=== PATIENT | female | born 1980 | race African-American/Black ===

== ENCOUNTER 2020-06-03 17:14 | Emergency (ER) | payer OTHER, MEDICAID, SELFPAY ==
--- NOTE | ~2020-06-03 | XR_ITS ---
XR chest 1V 06/03/2020 17:59 Indication: Chest pain Procedure: AP view of the chest Comparison: No prior studies for comparison. Findings: There is subsegmental atelectasis left lower lung zone. Heart size normal. No focal pneumon ia, edema, pleural effusion or pneumothorax. No acute osseous abnormality. Impression: 1: Subsegmental atelectasis left lower lung zone. Reviewed, dictated and finalized at location A. COATER Impression: 1: Subsegmental atelectasis left lower lung zone.
--- NOTE | ~2020-06-03 | US_ITS ---
EXAMINATION: US venous doppler [facility] DATE: 06/03/2020 17:57 INDICATION: Left arm pain TECHNIQUE: Paulino scale images with and without compression and Doppler images of the left upper extrem ity veins were obtained. COMPARISON: None. FINDINGS: The left internal jugular vein, subclavian vein, axillary vein, brachial veins, basilic vein, cephali c vein, radial vein, and ulnar vein are patent.] IMPRESSION: 1. Patent left upper extremity veins. No evidence of deep venous thrombosis. Reviewed, dictated and finalized at location A. AL TECHNICIAN
[2020-06-03 17:16] VITALS: BP 148/101; PULSE 112; RESP 16; TEMP 36.2; O2SAT 100
--- NOTE | 2020-06-03 18:03 | ED.GENADULT ---
HPI - General Adult General Chief complaint: Extremity Injury, Upper Stated complaint: Right Arm Stiffness Time Seen by Provider: 06/03/20 17:23 Source: patient Mode of arrival: ambulatory Limitations: no limitations History of Present Illness HPI narrative: Patient is a 39-year-old female who presents with left upper arm stiffness and aching pain for the last 2 days was seen by primary care referred to the emergency department for evaluation of this patient has not had a thick repaired she denies injury or trauma pain is worse with activity and movement Review of Systems Review of Systems: All systems reviewed & are unremarkable except as noted in HPI and below PMFSH Past Medical History Medical History Breast cancer Hyperlipidemia Social History Social History (Updated 06/03/20 @ 18:05 by Chencho Kincaid PA-C) Smoking status: Never smoker Exam Narrative: Exam Narrative: GENERAL: Well-appearing, well-nourished, and in no acute distress. HEAD: Normocephalic, atraumatic. EYES: PERRLA and EOMI. ENT: Nares clear, no rhinorrhea or epistaxis. Mucous membranes moist. NECK: Supple. No adenopathy or masses. CHEST: Clear to auscultation. No respiratory distress. No wheezes rales or rhonchi HEART: Regular rate and rhythm. No murmur heard. Normal peripheral pulses. EXTREMITIES: Normal range of motion. No edema. Spasming and tenderness of the trapezius musculature rotator cuff musculature no cervical spine tenderness SKIN: Warm, dry, no rash. NEURO: No focal deficits. Alert and oriented x3. Neurovascularly intact. Capillary refill less than 2 seconds PSYCH: Normal mood and affect. Course Course Emergency Course: Patient in the room at this time aware of case findings treatment plan diagnosis will be discharged with outpatient follow-up with primary care Vital Signs Vital signs: Vital Signs Temperature 97.2 F L 06/03/20 17:16 Pulse Rate 112 H 06/03/20 17:16 Respiratory Rate 16 06/03/20 17:16 Blood Pressure 148/101 H 06/03/20 17:16 Pulse Oximetry 100 06/03/20 17:16 Temperature 97.2 F L 06/03/20 17:16 Pulse Rate 112 H 06/03/20 17:16 Respiratory Rate 16 06/03/20 17:16 Blood Pressure 148/101 H 06/03/20 17:16 Pulse Oximetry 100 06/03/20 17:16 Medical Decision Making MDM Narrative Medical decision making narrative: Patients injury or pain is consistent with musculoskeletal etiology. No signs of neurological or vascular compromise on exam. Compartments and tisues are soft without signs of compartment syndrome. Pain is felt appropriate for further evaluation on an outpatient basis. Vital Signs Vital Signs: Vital Signs Temperature 97.2 F L 06/03/20 17:16 Pulse Rate 112 H 06/03/20 17:16 Respiratory Rate 16 06/03/20 17:16 Blood Pressure 148/101 H 06/03/20 17:16 Pulse Oximetry 100 06/03/20 17:16 Temperature 97.2 F L 06/03/20 17:16 Pulse Rate 112 H 06/03/20 17:16 Respiratory Rate 16 06/03/20 17:16 Blood Pressure 148/101 H 06/03/20 17:16 Pulse Oximetry 100 06/03/20 17:16 Imaging Data Radiologist's impression: ITS Impressions Venous Doppler Study 06/03/20 18:00 IMPRESSION: 1. Patent left upper extremity veins. No evidence of deep venous thrombosis. Chest X-Ray 06/03/20 18:01 Impression: 1: Subsegmental atelectasis left lower lung zone. Discharge Plan Discharge Clinical Impression: Arm pain, left Patient Disposition: Home, Self-Care Condition: Stable Instructions: Antibiotic Form, Arm Pain (ED) Additional Instructions: Follow up with your primary care provider within 5-7 days. Go to ER for shortness of breath, difficulty breathing, chest pain, fever/chills, weakness, nauseau/vomitting, etc. or any other concerns. Take any prescribed medications as directed. If you do not have a drug allergy to tylenol or motrin and can tolerate it then take tylenol or
[2020-06-03] MEDS: KETOROLAC (*BKC) 60 MG/2 ML VIAL IM (18:24)
[2020-06-03 18:44] VITALS: BP 136/70; PULSE 100; RESP 12; O2SAT 99
== END 2020-06-03 18:44 | disposition home or self-care (01) ==
LOC: ANHED 18:35
PROVIDERS: Emergency Provider Emergency Medicine; PCP Emergency Medicine
DX: M79.622 Pain in left upper arm (principal); Z85.3 Personal history of malignant neoplasm of breast; E78.5 Hyperlipidemia, unspecified; R91.8 Other nonspecific abnormal finding of lung field
CPT/HCPCS: 71045; 93971; 96372; 99284; J1885

== ENCOUNTER 2023-01-12 15:06 | Outpatient (CLI) | payer OTHER, SELFPAY ==
--- NOTE | ~2023-01-12 | US_ITS ---
EXAMINATION: US pelvic complete w TV DATE: 01/12/2023 16:08 INDICATION: Pelvic and perineal pain. TECHNIQUE: Multiple transabdominal and transvaginal sonographic images of the pelvis were obtained. COMPARISON: None. FINDINGS: TRANSABDOMINAL ULTRASOUND: The uterus measures 10.4 x 15.3 x 9.7 cm. There is no free fluid in the pelvis. TRANSVAGINAL ULTRASOUND: The endometrial complex is not visualized. There are 4 subserosal fibroids in uterus measuring 7.7 cm , 4.8 cm, 4.6 cm, and 3.8 cm, respectively. The right ovary measures 2.9 x 1.8 x 3.0 cm. The left ova ry measures 3.7 x 2.1 x 2.7 cm. There is normal vascular flow in the ovaries. IMPRESSION: 1. Uterine fibroids. Reviewed, dictated and finalized at location A. IMPRESSION: 1. Uterine fibroids.
== END 2023-01-12 15:07 | disposition home or self-care (01) ==
PROVIDERS: PCP Emergency Medicine; Visit Provider Obstetrics & Gynecology
DX: R10.2 Pelvic and perineal pain (principal); D25.9 Leiomyoma of uterus, unspecified
CPT/HCPCS: 76830; 76856

== ENCOUNTER 2023-02-18 07:54 | Outpatient (CLI) | payer OTHER, SELFPAY | END 2023-02-18 07:55 | disposition home or self-care (01) | LOC: ANHSURGERY 07:59 | PROVIDERS: PCP Emergency Medicine; Visit Provider Obstetrics & Gynecology | DX: D21.9 Benign neoplasm of connective and other soft tissue, unspecified (principal) | CPT/HCPCS: 36415; 86850; 86900; 86901 ==

== ENCOUNTER 2023-02-25 12:33 | Inpatient (IN) | payer OTHER, SELFPAY ==
[2023-02-12 17:04] VITALS: BMI 34.9
--- NOTE | 2023-02-12 17:13 | PC.NURSE ---
Report to the Outpatient Waiting Room, entrance under the green pavilion located off [facility], at time _0600_ on date _[id number]_. Planned Procedure Time: _0730_. Time changes happen often and if your time is changed the preop area will call you the afternoon before. - You and your visitor will be asked to self-screen and do not enter if you have any COVID symptoms. - A mask is optional within the hospital at this time. Patients may have clear liquids (water, carbonated beverages, clear teas, apple juice) until 3 hours prior to surgery with a maximum of 20 ounces. - No food from midnight until time of surgery Take the following medications with a SIP of water the morning of surgery: ___Tamoxifen DO NOT STOP ANY OF YOUR OTHER PRESCRIPTION MEDICATIONS PRIOR TO SURGERY ?EXCEPT THE FOLLOWING Medications to discontinue per physician ____None Date to take last dose Please no make-up, nail citizen of [place], hairspray, perfume, deodorant, or body powder the day of surgery. No jewelry (including any body piercings) or valuables the day of surgery, leave them at home. Please take a shower or bath the night before, or the morning of, surgery with an antibacterial soap. Wear comfortable, loose fitting clothing. - Jewelry must be removed prior to entering the operating room. Rings and piercings that are not removed may be cut off. - The hospital will not accept responsibility for valuables. - Please leave all valuables, including medications, at home the day of surgery. If you are going home after surgery, a licensed delivery driver must drive you home. - NO public transportation without another adult if you receive anesthesia. - We recommend that an adult stay with you for 24 hours following discharge. - We also recommend that you do not drive, make important decision, drink alcoholic beverages, or take any drugs that were not prescribed by your health care provider for at least 24 hours after your discharge time. Follow any additional instructions given to you from your surgeon. If you or anyone in your household have experienced Covid symptoms in the past week, please notify your surgeon or the nurse liaison at the phone number below for possible testing. Telephone instructions given to _Manuela__and asked if any additional questions and then verbalized understanding. Patient advised to call surgeon office or pre surgery nurse liaison [phone] if any additional questions.
--- NOTE | 2023-02-24 14:17 | WPDANESEPPF ---
Anes - Initial Pre Proc Eval Procedure: Operation Date: 02/25/23 07:30 Proposed Procedures p Total Abdominal Hysterectomy with Bilateral Salpingectomy - Aruna Archuleta MD s Open Ventral Hernia Repair with Possible Mesh - Nilton Tay MD Date/Time: 02/24/23 14:17 Surgeon: Aruna Archuleta MD Pre Op Diagnosis: uterine fibroids, Ventral Hernia Patient Data Age: 42 Gender: F Height: 1.5 m Weight: 78.6 kg Allergies Allergy/AdvReac Type Severity Reaction Status Date / Time No Known Allergies Allergy Verified 02/12/23 17:03 Home Medications Medication Instructions Recorded Confirmed Type tamoxifen 20 mg tablet 20 mg PO DAILY 01/12/23 02/12/23 History ibuprofen 800 mg tablet 800 mg PO TID PRN Pain 02/12/23 02/12/23 History Patient hx anesthesia problems: none Family hx anesthesia problems: none Results Review: All pre-operative results and documents have been reviewed as part of the pre-operative evaluation. [facility] Past Medical History Medical History (Updated 02/24/23 @ 21:06 by Aruna Archuleta MD) Breast cancer Hyperlipidemia Surgical History Surgical History Delivery by section H/O laparoscopy History of tubal ligation Family History Family History Other COPD (chronic obstructive pulmonary disease) Hypertension Social History Social History (Updated 01/28/23 @ 14:11 by Maria R Joyce MA) Years smoked: 2 Smoking status: Current every day smoker Tobacco type: cigarettes Additional smoking assessment comments: smokes weekends only. Alcohol intake: current Drinks per week: 7 Alcohol use details: socially Substance use: current Substance use type: marijuana Other substance usage details: daily Lack of Transportation: No Lack of Food: Never True Current Housing: I Have Housing Concerned About Future Housing: No Difficulty Paying Gas/Electric Bills: No Difficulty Paying for Meds: No Currently Unemployed: No Education: High School Diploma/GED Difficulty w/ Childcare or Family Care: No Living arrangements: with family Occupation/Education: occupation Gender identity (if verbalized by the patient): Female Sexual Orientation (if Verbalized by the Patient): Straight or Heterosexual Spiritual care concerns: No Anes - Eval Final PreProcedure Day of Procedure 02/24/23 14:17 Patient weight: obese Heart: regular rate and rhythm Lungs: clear to auscultation Airway: Mallampati scale class II Neurological: alert and oriented Last oral intake: >/= 8 hours ASA classification: III Emergent: no Anesthetic plan: proceed Anesthesia type and monitoring: general ETT and standard monitoring Results Review: All pre-operative results and documents have been reviewed as part of the pre-operative evaluation. Informed Consent: The patient's anesthetic plan and its attendant risks and benefits were discussed with the patient/family/POA. Questions were solicited and answers provided to the satisfaction of the patient/family/POA.
--- NOTE | 2023-02-24 21:01 | PM.IMHP ---
H&P: HPI History of Present Illness Date/Time: 02/24/23 21:01 Chief Complaint: pelvic pain Narrative: Manuela is a 42yo P2002, who presents for scheduled surgery. She went to [place] ER with abdominal pain. CT scan showed an enlarged fibroid uterus with possible necrosis.?She has a h/o tubal/ablation 15 yrs ago. She still has a monthly cycle, it's just very light. She has severe pelvic pain. She does have a h/o breast cancer in 2017 and is on Tamoxifen; reports it was hormonal positive. 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 She denies fever, chills. She would like to proceed with hysterectomy. 10/2021 NILM/HPV neg pap She has also seen Dr. Tay w/ general surgery due to her hernia/diastasis. Review of Systems Constitutional: Constitutional: Denies chills, Denies fever(s) and Denies headache(s) Eyes: Eyes: Denies change in vision ENT: Denies dizziness and Denies headache(s) Cardiovascular: Cardiovascular: Denies chest pain and Denies dyspnea Respiratory: Respiratory: Denies cough and Denies dyspnea Gastrointestinal: Gastrointestinal: Denies abdominal pain and Denies change in stool character Genitourinary: Genitourinary: Denies abnormal menses, Denies pelvic pain, Denies vaginal discharge, Denies vaginal odor and Denies vaginal pruritus Neurologic: Denies dizziness and Denies headache(s) Psychiatric: Psychiatric: Denies anxiety and Denies depression [facility] Past Medical History Medical History (Updated 02/24/23 @ 21:06 by Aruna Archuleta MD) Breast cancer Hyperlipidemia Surgical History Surgical History Delivery by section H/O laparoscopy History of tubal ligation Family History Family History Other COPD (chronic obstructive pulmonary disease) Hypertension Social History Social History (Updated 01/28/23 @ 14:11 by Maria R Joyce MA) Years smoked: 2 Smoking status: Current every day smoker Tobacco type: cigarettes Additional smoking assessment comments: smokes weekends only. Alcohol intake: current Drinks per week: 7 Alcohol use details: socially Substance use: current Substance use type: marijuana Other substance usage details: daily Lack of Transportation: No Lack of Food: Never True Current Housing: I Have Housing Concerned About Future Housing: No Difficulty Paying Gas/Electric Bills: No Difficulty Paying for Meds: No Currently Unemployed: No Education: High School Diploma/GED Difficulty w/ Childcare or Family Care: No Living arrangements: with family Occupation/Education: occupation Gender identity (if verbalized by the patient): Female Sexual Orientation (if Verbalized by the Patient): Straight or Heterosexual Spiritual care concerns: No Meds Home Medications and Allergies Home Medications Medication Instructions Recorded Confirmed Type tamoxifen 20 mg tablet 20 mg PO DAILY 01/12/23 02/12/23 History ibuprofen 800 mg tablet 800 mg PO TID PRN Pain 02/12/23 02/12/23 History Allergies Allergy/AdvReac Type Severity Reaction Status Date / Time No Known Allergies Allergy Verified 02/12/23 17:03 Exam Const: General: cooperative, comfortable, no acute distress and obese Orientation/consciousness: patient oriented x3 Resp: Effort & Inspection: normal respiratory effort Cardio: Rate: regular rate GI: Inspection: normal to inspection GI Palp: No abdominal tenderness and Yes Soft to palpation : Other: deferred to OR Skin: General skin exam: normal color Neuro: General: patient oriented x3 Extrem: General: normal to inspection Psych: Appearance: grossly normal Affect: normal affect Attitude: cooperative Assessment and Plan Assessment and plan (1) Fibroid uterus: Qualifiers: Uterine le
[2023-02-25] VITALS (17 sets, daily range): BP systolic 122–191; BP diastolic 86–116; PULSE 86–97; RESP 10–18; TEMP 36.2–36.9; O2SAT 94–100
[2023-02-25] MEDS: ACETAMINOPHEN 500 MG TABLET 1000 MG PO ×3 (07:00→21:12)
[2023-02-25] MEDS: LACTATED RINGERS 1,000 ML 30 ML IV CONT ×2 (07:00→10:45)
[2023-02-25] MEDS: KETOROLAC 15 MG/ML VIAL (*BKC) IV PUSH (07:00)
--- NOTE | 2023-02-25 07:18 | WPDHPUPDATE1 ---
History and Physical Update Update Date/Time: 02/25/23 07:18 History and Physical has been reviewed, including an updated exam of the patient. There are NO changes in the patient's condition. Risks, benefits, and alternatives have been discussed and questions answered. Patient agrees to proceed with procedure. Pt to get open hysterectomy today by Dr. Archuleta. Plan will be to make midline incision and when AIR SAMPLING AND MONITORING procedure is done, I will close the midline incision to perform primary repair of small ventral hernia and associated rectus diastasis.
--- NOTE | 2023-02-25 07:21 | WPDHPUPDATE1 ---
History and Physical Update Update Date/Time: 02/25/23 07:21 History and Physical has been reviewed, including an updated exam of the patient. There are NO changes in the patient's condition. Risks, benefits, and alternatives have been discussed and questions answered. Patient agrees to proceed with TAZ-BSO.
[2023-02-25] MEDS: ceFAZolin 2 GM/D5W 50 ML 2 GM/50 ML BAG IVPB (07:34)
[2023-02-25] MEDS: metroNIDAZOLE 500 MG/ISO 100ML 500 MG/100 ML BAG 100 MG IVPB (08:12)
--- NOTE | 2023-02-25 09:30 | W.PM.PROC2 ---
Procedure Note - Detailed Date of Procedure 02/25/23 Pre-op Diagnosis uterine fibroids, Ventral Hernia Post-op Diagnosis Same Procedure Performed Total abdominal hysterectomy with bilateral salpingo-oophorectomy Surgeon Aruna Archuleta MD Gas Meter Checker Francisco Schwab MD Anesthesia General Findings Large ventral hernia. 20wk size fibroid uterus; multiple fibroids, small adhesions from the bladder to the lower uterine segment, right ovary with cyst; h/o tubal ligation, normal ovary, normal cervix. Hemaderm powder used at end of case. Good hemostasis at end of case. Description of Procedure Manuela was taken to the operating room where she was placed under general anesthesia without issues. She received 2 g Ancef and 500mg Metronidazole. She was then prepped and draped in the usual sterile fashion in the dorsal lithotomy position with her legs in low Parviz stirrups and her arms outstretched on arm boards. A norris catheter was placed by the oil processing technician. A time-out was performed with Dr. Tay in the room. He started the surgery by making the large midline vertical incision using a scalpel. The subcutaneous tissue was divided using Bovie cautery. Once fascia was reached, it was nicked in the midline and the peritoneum was entered using Metzenbaum scissors. The incision was extended superiorly and inferiorly for adequate expose. The Bookwalter retractor was placed and the bowel was packed in the upper abdomen using moist laps. The large fibroid uterus was grasped with a tenaculum and elevated out of the pelvis. I then started my hysterectomy on the left side. The ureters were easily identified transperitoneally and well out of the surgical field. The left IP ligament was identified and was clamped, doubly coagulated, and transected using the LigaSure device. The right IP ligament was identified and was clamped, doubly coagulated and transected using the LigaSure device. The uteroovarian arteries were then clamped, coagulated and transected bilaterally and the adnexa were removed from the surgical field. The round ligaments were clamped, coagulated, and transected. The broad ligament was then dissected anteriorly and posteriorly skeletonizing the uterine arteries. The bladder flap was then developed on the left side and carried around the right, anteriorly. The uterine arteries were then serially clamped and coagulated. Once the vessel was adequately coagulated, it was then transected with good hemostasis. The uterus was noted to be devascularized. Using a scalpel, the large bulky fibroid uterus was cut from the cervix for better visualization of the cervix. The cervical stump was grasped with Benjie clamps. The cardinal ligaments were serially clamped, coagulated and transected with good hemostasis. The bladder flap was verified out of the surgical field. Z clamps were placed immediately beneath the cervix and colpotomy was made using Pippa scissors and the cervix was removed from the abdomen. Both corners of the vaginal vault were suture ligated, incorporating the uterosacral ligaments using 0 Vicryl. The remaining portion of the cuff was reapproximated using a running 0 Vicryl stitch. Small bleeders were made hemostatic using the Bovie cautery. All pedicles were examined and small bleeders along the peritoneum was made hemostatic with Bovie cautery. The pelvis was then irrigated and suctioned free of all clots and debris. Good hemostasis was noted. All tagged stitches were cut from the cuff. Hemoderm powder was placed on the raw edges. Lap count was performed and correct at the end of my portion of the surgery. She was in a stable condition and I unscrubbed and Dr. Tay scrubbed back in to finish the hernia and diastasis repair. EBL for my portion of the surgery was 100cc. Dr. Schwab was scrubbed for the entire abdominal hysterectomy with BSO; assisting with better visualization, suture ligating, and was a stein contributor to the surgery. Estimated Blood Loss 100
[2023-02-25] MEDS: fentaNYL CITRATE INJ (*CRX) 100 MCG/2 ML VIAL 25 MCG IV PUSH ×8 (10:54→11:10)
[2023-02-25] MEDS: HYDROmorphone HCL INJ (*CRX) 1 MG/ML SYR 0.5 MG IV PUSH ×6 (11:12→12:19)
[2023-02-25] MEDS: KETOROLAC 30 MG/ML VIAL (*BKC) IV PUSH ×3 (11:32→19:01)
[2023-02-25] MEDS: hydrALAZINE HCL 20 MG/ML VIAL 5 MG IV PUSH ×3 (11:48→12:16)
--- NOTE | 2023-02-25 12:38 | PC.NURSE ---
This patient, Manuela Best, was received from PACU via bed on 02/25/23 at 1238. Patient/family oriented to unit policies and routines.
[2023-02-25] MEDS: DEXTROSE 5%/LACTATED RINGERS 1,000 ML 125 ML IV CONT ×2 (12:59→21:20)
[2023-02-25] MEDS: HYDROmorphon 0.2MG/ML PCA(*CRX 6 MG/30 ML PCA.VIAL 1 MG IV CONT ×2 (14:07→18:26)
--- NOTE | 2023-02-25 14:46 | P.OPB_ITS ---
Procedure Note - Brief Procedure Note - Brief Date of procedure: 02/25/23 uterine fibroids, Ventral Hernia Post-op diagnosis: Same Procedure performed: Open reducible ventral hernia repair without mesh Surgeon: Nilton Tay MD Substance Abuse Technician: Adnrea MASON Anesthesia: GETA Findings: Primary of reducible ventral hernia defect extending from the umbilicus superiorly to the upper epigastric region. Length of defect was 15cm in length by 2cm in width. Implants: None Estimated blood loss (mL): 25 Urine output (mL): -150.0 Drains: No Packing: No Pathology: None sent Complications: No immediate complications Condition: Stable Disposition: PACU
--- NOTE | 2023-02-25 15:05 | W.PM.PROC2 ---
Procedure Note - Detailed Date of Procedure 02/25/23 Pre-op Diagnosis uterine fibroids, Ventral Hernia Post-op Diagnosis Same Procedure Performed Open reducible ventral hernia repair without mesh Surgeon Nilton Tay MD Hydrodynamicist Andrea Mcknight, MARLON Anesthesia General Indications patient is a 42-year-old female who has large fibroid tumors on the uterus and is to undergo a total abdominal hysterectomy. She also has a primary ventral hernia in the periumbilical region was extend superiorly into the epigastric region. It is reducible. Is symptomatic with pain. She presents now for the total abdominal hysterectomy via open approach. The hernia repaired primarily without the use of any mesh at the end of the [employer] procedure. Findings Patient had no adhesions within the abdomen. Findings from stripe marker perspective can be found in the stripe marker note. The hernia defect measured 15cm in length was about 2cm in width. Extended from the periumbilical region cephalad to the superior epigastric region. No abdominal he was were noted. Description of Procedure after informed consent was obtained the patient was brought to the operating room where she was placed supine position and general endotracheal anesthesia was administered. [facility] in a lithotomy position. The abdomen and perineum was then prepped and draped in usual sterile fashion. A time-out was then performed correctly identifying the patient as well as the procedure to be performed. She was given perioperative IV antibiotics. I 1st started by making a generous midline incision starting in the mid upper epigastric region extending all the down to the pubic symphysis. Dissection carried down through the subcutaneous tissues electrocautery and once the fascia the midline was encountered I incised it and opened it at the umbilicus in the area the hernia sac. Once I entered the abdomen out difficulty I then opened the midline fascia throughout the whole length to match the skin incision. Down at the pubic symphysis and made sure that I divided only the fascia and that did not injure the bladder. A bowel for retractor was then placed to aid with visualization and retraction. At this point I scrubbed out the procedure and Dr. Zavala and Dr. Archuleta proceeded to perform the total abdominal hysterectomy.Details of the hysterectomy can be found in the operative note. After the hysterectomy was done I re-entered the room and scrubbed back in. I then proceeded to resect away about a 2cm strip of very attenuated fascia on either side of the midline with electrocautery. This extended back to the good thick fascia. I then proceeded to close the resulting hernia defect which measured approximately 15cm in length by 2cm in width. This is done with running 1 looped PDS suture starting at each end incision. About every 2 to 3 cm a 0 Ethibond suture was placed for internal retention suture. Once the abdomen was closed in the midline without any tension I then irrigated out subcutaneous tissue sterile saline solution. Hemostasis was excellent. I then closed the subcu tissues with interrupted 3-0 Vicryl sutures placed in a figure-eight fashion. The skin edges were then approximated utilizing a running subcuticular 4-0 Monocryl suture. The incision was then cleaned and then skin glue and a island dressing was applied. The patient tolerated the procedure well no complications. All sponges, needles, and instrument counts were correct at the end procedure. EBL was _25__cc For the hernia repair part of the procedure. Apparently blood loss for the hysterectomy was about 100cc.The patient was awakened and taken to recovery in stable and satisfactory condition. Implants None Estimated Blood Loss 125 Urine Output -150.0 Drains No Packing No Pathology None sent ( no specimen sent for the hernia repair portion of the procedure) Complications No immediate complications Conditio
[2023-02-25] MEDS: DOCUSATE SODIUM 100 MG CAPSULE PO (17:06)
[2023-02-25] MEDS: METOCLOPRAMIDE HCL INJ 10 MG/2 ML VIAL IV PUSH (17:06)
[2023-02-25] MEDS: oxyCODONE HCL (*CRX) 5 MG TAB IR 10 MG PO ×2 (17:12→21:11)
[2023-02-25] MEDS: SIMETHICONE 80 MG TAB.CHEW PO (17:12)
[2023-02-25] MEDS: NIFEdipine 10 MG CAPSULE PO (19:39)
[2023-02-25] MEDS: hydrALAZINE HCL 20 MG/ML VIAL 10 MG IV PUSH (21:02)
[2023-02-25] MEDS: CYCLOBENZAPRINE HCL 10 MG TABLET PO (21:48)
[2023-02-25] MEDS: ONDANSETRON INJ 4 MG/2 ML VIAL IV PUSH (22:01)
[2023-02-26 00:15] VITALS: BP 160/82; PULSE 97; RESP 16; TEMP 36.9; O2SAT 99
[2023-02-26] MEDS: KETOROLAC 30 MG/ML VIAL (*BKC) IV PUSH (01:38)
[2023-02-26] MEDS: oxyCODONE HCL (*CRX) 5 MG TAB IR 10 MG PO ×5 (01:39→17:30)
[2023-02-26 04:35] VITALS: BP 164/97; PULSE 98; RESP 16; TEMP 37; O2SAT 99
[2023-02-26] MEDS: ACETAMINOPHEN 500 MG TABLET 1000 MG PO ×4 (04:47→20:37)
[2023-02-26] MEDS: SIMETHICONE 80 MG TAB.CHEW PO ×3 (04:47→13:09)
[2023-02-26] MEDS: ONDANSETRON INJ 4 MG/2 ML VIAL IV PUSH (04:49)
[2023-02-26 05:37] LABS: Basophils Percent Auto 0.1 % (0.2-1.2); Hematocrit 40.9 % (37.0-47.0); Hemoglobin 13.2 g/dL (12.0-15.0); Immature Granulocyte Absolute 0.07 K/mm3 (0.00-0.031); Immature Granulocyte Percent A 0.5 % (0-0.5); Lymphocytes Absolute Auto 1.38 K/mm3 (0.9-3.2); Mean Corpuscular HGB Conc 32.3 g/dl (32-36); Mean Corpuscular Hemoglobin 30.2 pg (26-34); Mean Corpuscular Volume 93.6 fl (80-100); Mean Platelet Volume 10.5 fl (7.4-10.4); Monocytes Absolute Auto 0.6 K/mm3 (0.1-0.6); Monocytes Percent Auto 4.5 % (2.6-8.5); Neutrophils Absolute Auto 11.8 K/mm3 (1.3-6.7); Neutrophils Percent Auto 84.9 % (45.5-73.1); Platelet Count Result 255 k/mm3 (150-375); Red Blood Count 4.37 M/mm3 (4.2-5.4); Red Cell Distribution Width 13.3 % (11.5-14.5); White Blood Count 13.9 K/mm3 (4.5-10.0)
[2023-02-26 05:47] LABS: Alanine Aminotransferase 17 U/L (6-35); Albumin Level 4.3 g/dL (3.5-5.1); Alkaline Phosphatase 54 U/L (38-126); Anion Gap 9 mmol/L (8-16); Aspartate Amino Transferase 32 U/L (14-36); Bilirubin,Total 0.7 mg/dL (0.2-1.3); Blood Urea Nitrogen 4 mg/dL (7-17); Calcium 9.2 mg/dL (8.4-10.2); Carbon Dioxide 24 mmol/L (22-30); Chloride 102 mmol/L (98-107); Estimated Glomerular Filt Rate > 60; Glucose 135 mg/dL (65-110); Potassium 3.5 mmol/L (3.4-5.0); Sodium 135 mmol/L (137-145)
--- NOTE | 2023-02-26 07:22 | PM.GYNPNOP ---
SENIOR CONTROLS ENGINEER - A/P Assessment and plan (1) S/P total abdominal hysterectomy and bilateral salpingo-oophorectomy: Code(s): Z90.710 - Acquired absence of both cervix and uterus; Z90.722 - Acquired absence of ovaries, bilateral; Z90.79 - Acquired absence of other genital organ(s) Status: Acute Plan - will switch from PROPERTY MANAGEMENT COORDINATOR to oral pain meds today - will start effexor to help with hot flashes; continue tamoxifen - awaiting spontaneous void and flatus - ambulation, IS, hydration encouraged - SCDs while in bed - possible d/c tomorrow Postoperative Procedures: Procedures Operation Date: 02/25/23 07:30 Actual Procedure Side Surgeon p Total Abdominal Hysterectomy with Bilateral Salpingectomy Bilateral Aruna Archuleta MD s Open Ventral Hernia Repair with Possible Mesh Bilateral Nilton Tay MD Postoperative day: 1 Postoperative status: marginal pain control Postoperative plan: routine post-op care and advance diet Time Spent With Patient Time: Total time spent is greater than 50% in coordination of care (as documented) at patient's floor/unit and/or counseling patient: Time with patient: less than 15 minutes SENIOR CONTROLS ENGINEER- PN:Subj Post-Op Subjective Date/time seen: 02/26/23 08:35 Interval history: POD#1 Manuela reports doing ok today, her pain wasn't controlled overnight and her blood pressure was high (got multiple doses of Procardia and hydralazine). She has tolerated clear liquid diet, breakfast has been ordered. She denies any vaginal bleeding. She has not voided; norris was removed at 0800. She has belched, but has not passed flatus. She has sat up in the chair and denies any symptoms of anemia. She is having hot flashes. Review of Systems Review of Systems: All systems reviewed & are unremarkable except as noted in HPI and below (HPI) Constitutional: Constitutional: Denies chills, Denies fever(s) and Denies headache(s) Eyes: Eyes: Denies change in vision ENT: Denies dizziness and Denies headache(s) Cardiovascular: Cardiovascular: Denies chest pain and Denies rapid heart rate Respiratory: Respiratory: Denies cough Genitourinary: Genitourinary: Denies abnormal vaginal bleeding Neurologic: Denies dizziness and Denies headache(s) Exam Const: General: cooperative, healthy appearing, comfortable and no acute distress Orientation/consciousness: patient oriented x3 Resp: Effort & Inspection: normal respiratory effort Auscultation: clear to auscultation bilaterally Cardio: Rate: regular rate GI: Inspection: normal to inspection and incision (large midline vertical covered w/ dermabond) GI Palp: Yes abdominal tenderness (appropriate) and Yes Soft to palpation Auscultation: Hypoactive bowel sounds present : Other: normal bleeding on pad Skin: General skin exam: normal color Neuro: General: patient oriented x3 Psych: Appearance: grossly normal Affect: normal affect Attitude: cooperative SENIOR CONTROLS ENGINEER - PN: Obj Data Vital Signs Vital Signs: Vital Signs - 24 hr 02/25/23 10:45 02/25/23 11:00 02/25/23 11:15 Temperature 97.1 F L Pulse Rate 90 92 86 Respiratory Rate 10 L 17 14 Blood Pressure 156/116 H 146/94 H 138/100 H Pulse Oximetry 100 94 97 Oxygen Delivery Simple Face Mask Simple Face Mask Nasal Cannula Oxygen Flow Rate 6 6 3 02/25/23 11:30 02/25/23 11:45 02/25/23 12:00 Temperature Pulse Rate 86 90 90 Respiratory Rate 12 13 12 Blood Pressure 160/104 H 165/111 H 157/99 H Pulse Oximetry 99 99 100 Oxygen Delivery Nasal Cannula Nasal Cannula Nasal Cannula Oxygen Flow Rate 2 2 2 02/25/23 12:17 02/25/23 12:25 02/25/23 12:40 Temperature 98 F Pulse Rate 90 90 94 Respiratory Rate 12 18 Blood Pressure 159/89 H 154/90 H 144/96 H Pulse Oximetry 100 100 100 Oxygen Delivery Nasal Cannula Nasal Cannula Oxygen Flow Rate 2 2 02/25/23 14:07 02/25/23 12:45 02/25/23 14:35 Temperature Pulse Rate Respiratory Rate 18 Blood Pressure Pulse Oximetry 100 100 Oxygen Delivery
[2023-02-26 07:55] VITALS: BP 140/79; PULSE 96; RESP 16; TEMP 36.6; O2SAT 100
--- NOTE | 2023-02-26 08:10 | WPDANESPN ---
Anes - Prog Note Post-Op Date/Time: 02/26/23 08:10 Cardiovascular status: normal Respiratory status: normal Airway patency: baseline Mental status: baseline Post-Op hydration status: normal Vital Signs: Last Vital Signs Temp 37.0 C 02/26/23 04:35 Pulse 98 02/26/23 04:35 Resp 16 02/26/23 04:35 BP 164/97 H 02/26/23 04:35 Pulse Ox 99 02/26/23 04:35 O2 Del Method Room Air 02/25/23 16:10 O2 Flow Rate 2 02/25/23 12:45 Pain Score (VAS): 0 I/O: Intake & Output 02/25/23 02/26/23 02/26/23 23:59 07:59 15:59 Intake Total 1680 Output Total 1950 1550 Balance -270 -1550 Laboratory Tests 02/26/23 05:02 02/26/23 05:01 02/26/23 02/26/23 05:01 05:02 WBC 13.9 H RBC 4.37 Hgb 13.2 Hct 40.9 MCV 93.6 MCH 30.2 MCHC 32.3 RDW 13.3 Plt Count 255 MPV 10.5 H Immature Gran % (Auto) 0.5 Neut % (Auto) 84.9 H Lymph % (Auto) 10.0 L [place] % (Auto) 4.5 Eos % (Auto) 0.0 Baso % (Auto) 0.1 L Lymph # (Auto) 1.38 [place] # (Auto) 0.6 Eos # (Auto) 0.0 Baso # (Auto) 0.0 Abs Immat Gran (auto) 0.07 H Absolute Neuts (auto) 11.8 H Absolute Nucleated RBC 0.0 Nucleated RBC % 0.0 Sodium 135 L Potassium 3.5 Chloride 102 Carbon Dioxide 24 Anion Gap 9 BUN 4 L Creatinine 0.50 L Estim Creat Clear Calc Not Reportable Estimated GFR > 60 Glucose 135 H Calcium 9.2 Total Bilirubin 0.7 AST 32 ALT 17 Alkaline Phosphatase 54 Total Protein 8.0 Albumin 4.3 Post-procedural complaints: none Patient Feedback: Patient satisfied with anesthetic care.
[2023-02-26] MEDS: TAMOXIFEN CITRATE (*CHEMO) 10 MG TABLET 20 MG PO (09:09)
[2023-02-26] MEDS: DOCUSATE SODIUM 100 MG CAPSULE PO ×2 (09:09→17:30)
[2023-02-26] MEDS: NIFEdipine 30 MG TAB.ER.24 PO (09:09)
[2023-02-26] MEDS: VENLAFAXINE HCL 37.5 MG TABLET PO (10:40)
--- NOTE | 2023-02-26 11:15 | PM.PNGS ---
Progress Note: A&P Assessment and Plan (1) Ventral hernia: Qualifiers: Obstruction and gangrene presence: without obstruction or gangrene Qualified Code(s): K43.9 - Ventral hernia without obstruction or gangrene Code(s): K43.9 - Ventral hernia without obstruction or gangrene Status: Acute Assessment and Plan: Status post ventral hernia repair without mesh the open approach. Postop day 1. She is doing very well and can be discharged home at the discretion of Dr. Archuleta. Patient was instructed follow up to see me in my office in 2 weeks. May shower but not soak her incision under water for 2 weeks. Wear the abdominal binder at all times except when showering. No lifting more than 5 to 10 lb for the next 6 weeks. Subjective Subjective Date/Time Seen: 02/26/23 11:15 Interval history: Patient is doing very well today postoperative day 1 after combined case with order desk clerk where she had a total abdominal hysterectomy and open repair of reducible ventral hernia without mesh. Her pain is well controlled with oral pain medications. She tolerated diet and regular food today. Exam Const: General: comfortable and no acute distress Resp: Effort & Inspection: normal respiratory effort Auscultation: clear to auscultation bilaterally Cardio: Rate: regular rate Rhythm: regular rhythm GI: Other: Abdomen is soft and nondistended. Midline incision is approximated with skin glue. There is no redness or drainage. Abdominal binder is in place. Psych: Mental Status: mental status grossly normal Affect: normal affect Objective Data Vital Signs Vital Signs: Vital Signs - 24 hr 02/25/23 11:30 02/25/23 11:45 02/25/23 12:00 Temperature Pulse Rate 86 90 90 Respiratory Rate 12 13 12 Blood Pressure 160/104 H 165/111 H 157/99 H Pulse Oximetry 99 99 100 Oxygen Delivery Nasal Cannula Nasal Cannula Nasal Cannula Oxygen Flow Rate 2 2 2 02/25/23 12:17 02/25/23 12:25 02/25/23 12:40 Temperature 36.6 C Pulse Rate 90 90 94 Respiratory Rate 12 18 Blood Pressure 159/89 H 154/90 H 144/96 H Pulse Oximetry 100 100 100 Oxygen Delivery Nasal Cannula Nasal Cannula Oxygen Flow Rate 2 2 02/25/23 14:07 02/25/23 12:45 02/25/23 14:35 Temperature Pulse Rate Respiratory Rate 18 Blood Pressure Pulse Oximetry 100 100 Oxygen Delivery Nasal Cannula Room Air Oxygen Flow Rate 2 02/25/23 16:10 02/25/23 16:10 02/25/23 17:25 Temperature 36.4 C Pulse Rate 87 Respiratory Rate 16 Blood Pressure 160/104 H Pulse Oximetry 100 Oxygen Delivery Room Air Oxygen Flow Rate 02/25/23 19:05 02/26/23 00:15 02/25/23 20:40 Temperature 36.2 C L 36.9 C Pulse Rate 94 97 Respiratory Rate 14 16 Blood Pressure 188/107 H 160/82 H 191/110 H Pulse Oximetry 100 99 Oxygen Delivery Oxygen Flow Rate 02/25/23 21:23 02/26/23 04:35 02/26/23 07:55 Temperature 37.0 C 36.6 C Pulse Rate 98 96 Respiratory Rate 16 16 Blood Pressure 159/93 H 164/97 H 140/79 Pulse Oximetry 99 100 Oxygen Delivery Oxygen Flow Rate Intake/Output Intake/Output: Intake & Output 02/23/23 02/24/23 02/25/23 02/26/23 23:59 23:59 23:59 23:59 Intake Total 1830 500 Output Total 2100 1900 Balance -270 -1400 Meds/Results Medications: Active Medications Generic Name Dose Route Start Last Admin Trade Name Freq PRN Reason Stop Dose Admin Acetaminophen 1,000 mg 02/25/23 13:00 02/26/23 10:39 Acetaminophen 500 Mg Tablet PO 1,000 mg Q6H VANDANA Administration Cyclobenzaprine HCl 10 mg 02/25/23 21:34 02/25/23 21:48 Cyclobenzaprine Hcl 10 Mg Tablet PO 10 mg Q6H PRN Administration Muscle Spasm Docusate Sodium 100 mg 02/25/23 17:00 02/26/23 09:09 Docusate Sodium 100 Mg Capsule PO 100 mg BID VANDANA Administration Dextrose/Lactated Ringer's 1,000 mls @ 125 mls/hr 02/25/23 12:31 02/26/23 06:54 Dextrose 5%/Lactated Ringers IV CONT Not Given .Q8H SC
[2023-02-26 20:45] VITALS: BP 136/77; PULSE 113; RESP 18; TEMP 36.7; O2SAT 99
[2023-02-26] MEDS: oxyCODONE HCL (*CRX) 5 MG TAB IR PO (22:38)
[2023-02-27] MEDS: ACETAMINOPHEN 500 MG TABLET 1000 MG PO ×3 (02:50→14:35)
[2023-02-27] MEDS: oxyCODONE HCL (*CRX) 5 MG TAB IR 10 MG PO (03:08)
[2023-02-27 08:30] VITALS: BP 144/85; PULSE 98; RESP 18; TEMP 36.9; O2SAT 100
[2023-02-27] MEDS: NIFEdipine 30 MG TAB.ER.24 PO (08:38)
[2023-02-27] MEDS: VENLAFAXINE HCL 37.5 MG TABLET PO (08:38)
[2023-02-27] MEDS: DOCUSATE SODIUM 100 MG CAPSULE PO (08:38)
[2023-02-27] MEDS: TAMOXIFEN CITRATE (*CHEMO) 10 MG TABLET 20 MG PO (08:39)
--- NOTE | 2023-02-27 11:04 | PM.GYNPNOP ---
LINE FISHER - A/P Postoperative Procedures: Procedures Operation Date: 02/25/23 07:30 Actual Procedure Side Surgeon p Total Abdominal Hysterectomy with Bilateral Salpingectomy Bilateral Aruna Archuleta MD s Open Ventral Hernia Repair with Possible Mesh Bilateral Nilton Tay MD Postoperative day: 2 Postoperative status: urinary retention (will dc with catheter and Flomax) Postoperative plan: routine post-op care, advance diet and discharge Time Spent With Patient Time: Total time spent is greater than 50% in coordination of care (as documented) at patient's floor/unit and/or counseling patient: Time with patient: less than 15 minutes LINE FISHER- PN:Subj Post-Op Subjective Date/time seen: 02/27/23 11:04 Interval history: Patient unable to void. Straight cath 600 cc. Still unable to void so catheter placed and another 550 cc. Patient states after her tubal ligation the same thing happened to her. No nausea and tolerated a light breakfast. Pain under control with just motrin and tylenol since 299 oxycodone. Subjective: patient desires discharge Exam Const: General: comfortable and no acute distress Resp: Effort & Inspection: normal respiratory effort GI: Inspection: other (incision clean, dry, intact) GI Palp: Yes abdominal tenderness (appropriate) LINE FISHER - PN: Obj Data Vital Signs Vital Signs: Vital Signs - 24 hr 02/26/23 20:45 02/26/23 20:45 02/27/23 08:30 Temperature 98.1 F Pulse Rate 113 H 113 H Respiratory Rate 18 18 Blood Pressure 136/77 Pulse Oximetry 99 99 Oxygen Delivery Room Air Room Air 02/27/23 08:30 Temperature 98.4 F Pulse Rate 98 Respiratory Rate 18 Blood Pressure 144/85 H Pulse Oximetry 100 Oxygen Delivery Intake/Output Intake/Output: Intake & Output 02/24/23 02/25/23 02/26/23 02/27/23 23:59 23:59 23:59 23:59 Intake Total 1830 1250 240 Output Total 2100 2300 1575 Balance -234 -7169 -9171 Meds/Results Medications: Active Medications Generic Name Dose Route Start Last Admin Trade Name Freq PRN Reason Stop Dose Admin Acetaminophen 1,000 mg 02/25/23 13:00 02/27/23 08:38 Acetaminophen 500 Mg Tablet PO 1,000 mg Q6H VANDANA Administration Cyclobenzaprine HCl 10 mg 02/25/23 21:34 02/25/23 21:48 Cyclobenzaprine Hcl 10 Mg Tablet PO 10 mg Q6H PRN Administration Muscle Spasm Docusate Sodium 100 mg 02/25/23 17:00 02/27/23 08:38 Docusate Sodium 100 Mg Capsule PO 100 mg BID VANDANA Administration Ibuprofen 800 mg 02/26/23 12:00 Ibuprofen 400 Mg Tablet PO Q8H PRN Cramping Metoclopramide HCl 10 mg 02/25/23 12:31 02/25/23 17:06 Metoclopramide Hcl Inj 10 Mg/2 Ml Vial IV PUSH 10 mg Q6H PRN Administration Nausea Nifedipine 30 mg 02/26/23 08:01 02/27/23 08:38 Nifedipine 30 Mg Tab.Er.24 PO 30 mg QAM VANDANA Administration Ondansetron HCl 4 mg 02/25/23 12:31 02/26/23 04:49 Ondansetron Inj 4 Mg/2 Ml Vial IV PUSH 4 mg Q6H PRN Administration Nausea Oxycodone HCl 5 mg 02/25/23 16:27 02/26/23 22:38 Oxycodone Hcl (*Crx) 5 Mg Tab Ir PO 5 mg Q4H PRN Administration Pain Rated 4-6 Oxycodone HCl 10 mg 02/25/23 16:27 02/27/23 03:08 Oxycodone Hcl (*Crx) 5 Mg Tab Ir PO 10 mg Q4H PRN Administration Pain Rated 7-10 Simethicone 80 mg 02/25/23 12:31 02/26/23 13:09 Simethicone 80 Mg Tab.Chew PO 80 mg Q2H PRN Administration Gas Tamoxifen Citrate 20 mg 02/26/23 09:00 02/27/23 08:39 Tamoxifen Citrate (*Chemo) 10 Mg Tablet PO 20 mg DAILY VANDANA Administration Tamsulosin HCl 0.4 mg 02/28/23 09:00 Tamsulosin Hcl 0.4 Mg Capsule PO QAM VANDANA Venlafaxine HCl 37.5 mg 02/26/23 10:00 02/27/23 08:38 Venlafaxine Hcl 37.5 Mg Tablet PO 37.5 mg DAILY VANDANA Administration Labs 02/26/23 05:02 02/26/23 05:01
[2023-02-27] MEDS: TAMSULOSIN HCL 0.4 MG CAPSULE PO (12:00)
[2023-02-27 14:17] VITALS: BP 141/79
[2023-02-27 14:19] VITALS: BP 135/78
--- NOTE | 2023-03-01 09:41 | PM.DS ---
DS: Admitting Diagnosis Discharge Date 02/27/23 Admitting Diagnosis Fibroid uterus Pelvic pain Ventral Hernia DS: Discharge Diagnosis Discharge Diagnosis (1) S/P total abdominal hysterectomy and bilateral salpingo-oophorectomy: Code(s): Z90.710 - Acquired absence of both cervix and uterus; Z90.722 - Acquired absence of ovaries, bilateral; Z90.79 - Acquired absence of other genital organ(s) Status: Acute (2) S/P ventral herniorrhaphy: Code(s): Z98.890 - Other specified postprocedural states; Z87.19 - Personal history of other diseases of the digestive system Status: Acute (3) Urinary retention: Code(s): R33.9 - Retention of urine, unspecified Status: Acute DS: Summary Hospital Course Hospital Course: She was admitted after surgery. Her post-op course was uncomplicated except for hypertension. On day of discharge, her pain was controlled, she was spontaneously passing flatus and tolerating regular diet. Her labs and vitals were stable. She did not pass a voiding trial and urinary retention was diagnosed and she was discharged home with a norris catheter. Status at Discharge Functional status at discharge: independent ambulation Overall status at discharge: patient is back to baseline Time Spent with Patient Time attestation: Total time spent providing and/or coordinating discharge services: Time spent: Less than 30 minutes Exam Const: General: cooperative, comfortable, no acute distress and obese Orientation/consciousness: patient oriented x3 Resp: Effort & Inspection: normal respiratory effort Auscultation: clear to auscultation bilaterally Cardio: Rate: regular rate GI: Inspection: normal to inspection and incision (large midline vertical covered w/ dermabond) GI Palp: Yes abdominal tenderness (appropriate) and Yes Soft to palpation Auscultation: normal bowel sounds : Other: normal bleeding on pad Urinary Catheter: Urinary Catheter: patent and draining Skin: General skin exam: normal color Neuro: General: patient oriented x3 Extrem: General: normal to inspection Psych: Appearance: grossly normal Affect: normal affect Attitude: cooperative DS: Data Data Completed and Pending Pending studies at discharge: Pending at discharge 02/25/23 08:40 Surgical [PTH] Routine Surgical [PTH] Routine Labs on day of discharge: Labs from last 24 hours 02/26/23 02/26/23 05:02 05:01 WBC 13.9 H RBC 4.37 Hgb 13.2 Hct 40.9 MCV 93.6 MCH 30.2 MCHC 32.3 RDW 13.3 Plt Count 255 MPV 10.5 H Immature Gran % (Auto) 0.5 Neut % (Auto) 84.9 H Lymph % (Auto) 10.0 L [place] % (Auto) 4.5 Eos % (Auto) 0.0 Baso % (Auto) 0.1 L Lymph # (Auto) 1.38 [place] # (Auto) 0.6 Eos # (Auto) 0.0 Baso # (Auto) 0.0 Abs Immat Gran (auto) 0.07 H Absolute Neuts (auto) 11.8 H Absolute Nucleated RBC 0.0 Nucleated RBC % 0.0 Sodium 135 L Potassium 3.5 Chloride 102 Carbon Dioxide 24 Anion Gap 9 BUN 4 L Creatinine 0.50 L Estim Creat Clear Calc Not Reportable Estimated GFR > 60 Glucose 135 H Calcium 9.2 Total Bilirubin 0.7 AST 32 ALT 17 Alkaline Phosphatase 54 Total Protein 8.0 Albumin 4.3 Discharge Plan Discharge Patient Disposition: Home, Self-Care Discharge Instructions: ok to wear belly binder; otherwise incision open to air. No heavy lifting >15lbs for 6 weeks. Take colace 100mg twice daily or miralax twice daily to have regular bowel movements. Go to ER with fever, vomiting, severe pain. Patient instructed to wear T-shirt and then wear the abdominal binder over the T-shirt. Wear the abdominal binder night and day for now remove only the shower. No lifting more than 5 to 10 lb for the next 6 weeks. Okay to shower but do not soak the incision under water for the next 2 weeks. Walking up and down stairs is fine. No driving for at least 1 week or until no longer taking narcotic pain me
== END 2023-02-27 15:01 | disposition home or self-care (01) | DRG 519 ==
LOC: ANHSURGERY 03-15 08:25 → ANH3MEDSUR 03-15 08:26
PROVIDERS: Surgery; Admitting Provider Obstetrics & Gynecology; PCP Emergency Medicine; Visit Provider Obstetrics & Gynecology
PROC: 0UT94ZZ Resection of Uterus, Percutaneous Endoscopic Approach (ICD-10-PCS; principal; 2023-02-25 07:30)
PROC: 0WQF0ZZ Repair Abdominal Wall, Open Approach (ICD-10-PCS; 2023-02-25 07:30)
DX: D25.9 Leiomyoma of uterus, unspecified (principal); E66.9 Obesity, unspecified; N83.201 Unspecified ovarian cyst, right side; K43.9 Ventral hernia without obstruction or gangrene; R33.9 Retention of urine, unspecified; I97.3 Postprocedural hypertension; E78.5 Hyperlipidemia, unspecified; Z85.3 Personal history of malignant neoplasm of breast; F17.210 Nicotine dependence, cigarettes, uncomplicated; F12.90 Cannabis use, unspecified, uncomplicated; Z68.34 Body mass index [BMI] 34.0-34.9, adult; Z79.810 Long term (current) use of selective estrogen receptor modulators (SERMs); Z23 Encounter for immunization
CPT/HCPCS: 36415; 80053; 85025; 88304; 88307; 90471; 90686; 99199; A9270; G0008; J0360; J0690; J1100; J1170; J1836; J1885; J2250; J2405; J2704; J2765; J3010; J7120; J7121

== ENCOUNTER 2023-05-14 09:20 | Outpatient (CLI) | payer OTHER, SELFPAY | END 2023-05-14 09:21 | disposition home or self-care (01) | LOC: ANHLAB 09:22 | PROVIDERS: PCP Emergency Medicine; Visit Provider Obstetrics & Gynecology | DX: R30.0 Dysuria (principal) | CPT/HCPCS: 87086 ==